=== PATIENT | female | born 1965 | race Caucasian/White ===

== ENCOUNTER → 2022-01-10 13:22 | Outpatient (CLI) | payer BC, SELFPAY ==
--- NOTE | ~2022-01-10 | MM_ITS ---
EXAMINATION: MM screening gale BI w w[place]ka HISTORY: Screening mammogram TECHNIQUE: Craniocaudal and mediolateral oblique 3-D tomosynthesis images were obtained and synthetic 2-D images were generated. CAD analysis was submitted and interpreted. COMPARISON: 10/15/2017, 04/26/2013, 03/17/2012 bilateral screening mammogram examinations BREAST PARENCHYMAL COMPOSITION: There are scattered areas of fibroglandular density. FINDINGS: There is no evidence of suspicious mass, calcification, or architectural distortion to sugg est malignancy in either breast. There has been no suspicious interval change. IMPRESSION: 1. No mammographic evidence of malignancy. 2. Recommend routine screening mammography in one year. BI-RADS Category 1: Negative Reviewed, dictated and finalized at location A.
== END ==
PROVIDERS: PCP Family Medicine Sports Medicine; Visit Provider Family Medicine Sports Medicine
DX: Z12.31 Encounter for screening mammogram for malignant neoplasm of breast (principal)
CPT/HCPCS: 77063; 77067

== ENCOUNTER → 2023-03-18 11:40 | Outpatient (CLI) | payer BC, SELFPAY ==
--- NOTE | ~2023-03-18 | MM_ITS ---
EXAMINATION: MM screening gale BI w [place]ka HISTORY: Screening mammogram TECHNIQUE: Craniocaudal and mediolateral oblique 3-D tomosynthesis images were obtained and synthetic 2-D images were generated. CAD analysis was submitted and interpreted. COMPARISON: 01/10/2022, 10/15/2017 lateral screening mammogram examinations BREAST PARENCHYMAL COMPOSITION: There are scattered areas of fibroglandular density. FINDINGS: There is no evidence of suspicious mass, calcification, or architectural distortion to sugg est malignancy in either breast. There has been no suspicious interval change. IMPRESSION: 1. No mammographic evidence of malignancy. 2. Recommend routine screening mammography in one year. BI-RADS Category 1: Negative Reviewed, dictated and finalized at location A. RITY SYSTEM ENGINEER
== END ==
PROVIDERS: PCP Family Medicine Sports Medicine; Visit Provider Family Medicine Sports Medicine
DX: Z12.31 Encounter for screening mammogram for malignant neoplasm of breast (principal)
CPT/HCPCS: 77063; 77067

== ENCOUNTER 2025-02-16 11:53 | Outpatient (CLI) | payer BC, SELFPAY ==
--- NOTE | ~2025-02-16 | MM_ITS ---
EXAMINATION: MM screening gale BI w [place] HISTORY: Screening TECHNIQUE: Craniocaudal and mediolateral oblique 3-D tomosynthesis images were obtained and synthetic 2-D images were generated. CAD analysis was submitted and interpreted. COMPARISON: Comparison to multiple prior studies sequentially, with oldest reviewed study dated 10/15/2017. BREAST PARENCHYMAL COMPOSITION: Not Dense: The breasts are almost entirely fatty. FINDINGS: There is no evidence of suspicious mass, calcification, or architectural distortion to suggest malignancy in either breast. There has been no suspicious interval change. IMPRESSION: 1. No mammographic evidence of malignancy. 2. Recommend routine screening mammography in one year. BI-RADS Category 1: Negative Reviewed, dictated and finalized at location O.
--- OUTSIDE RECORDS SUMMARY | 2025-02-16 15:11 | XMS_ITS | Clinical Summary ---
Author Organization [facility] Address [address] [place] [address] Care Team Providers Care Rug Dry Room Attendant Name Role Phone Keith Astorga MD Primary Care Provider [phone] Source Comments [facility],non-owned Affiliates and Associated Physician Practices is amultiple site organization consisting of ambulatory clinics and hospital sitesin [place], [place], [place] and [place]. This disclosure is being madepursuant to the Care Everywhere program and may not contain all information available regarding this patient. Last updated 18.[facility] Allergies Active Allergy Reactions Criticality Noted Date Comments Tramadol 04/11/2014 dehydrates Medications * Be aware that medications may not be up to date on this document. Alwaysverify current medications with the patient. linaclotide (LINZESS) 290 MCG capsule Take 290 mcg by mouth daily before breakfast. Take on an empty stomach at least 30 minutes prior to first meal of the day. Active clidinium-chlor diazepoxide (LIBRAX) 5-2.5 MG capsule Take 1 Cap by mouth 3 times daily before meals. Active Calcium Carbonate-Vitam in D (CALCIUM + D PO) Take by mouth. Active multivitamin daily (THERAGRAN) tablet Take 1 Tab by mouth daily with food. Active IBUPROFEN PO Take by mouth as needed. Active hyoscyamine 0.125 MG tablet Take 1 Tab by mouth 4 times daily as needed (ibs). 60 Tab 3 06/01/2014 Active Family History Medical History Relation Name Comments Arthritis - Rheumatoid Brother CAD (Coronary Artery Disease) Father hardening Arthritis - Rheumatoid Mother Diabetes Mother Hypertension Mother Arthritis - Rheumatoid Sister Diabetes Sister Hypertension Sister Relation Name Status Comments Brother Father Mother Sister Social History Tobacco Use Types Packs/Day Years Used Date Smoking Tobacco: Never Smokeless Tobacco: Never Alcohol Use Standard Drinks/Week Comments No 0 (1 standard drink = 0.6 oz pur e alcohol) occas Comments Unknown Sex and Gender Information Value Date Recorded Sex Assigned at Not on file Legal Sex Female 10:08 AM POLICY DIRECTOR Gender Identity Not on file Sexual Orientation Not on file Last Filed Vital Signs Vital Sign Reading Time Taken Comments Blood Pressure 118/70 07/22/2016 11:23 AM CDT Pulse 67 07/22/2016 11:23 AM CDT Temperature 36.6 C (97.9 F) 07/22/2016 11:23 AM CDT Respiratory Rate 16 07/22/2016 11:23 AM CDT Oxygen Saturation 99% 07/22/2016 11:23 AM CDT Inhaled Oxygen Concentration - - Weight 86.2 kg (190 lb) 07/22/2016 11:23 AM CDT Height 160 cm (5' 3) 07/22/2016 11:23 AM CDT Body Mass Index 33.66 07/22/2016 11:23 AM CDT Plan of Treatment Health Maintenance Due Date Last Done Comments COLOGUARD (AGES 45-75) - COL ON CA SCREENING 1965 CT COLONOGRAPHY - COLON CA SCREENING 1965 FIT - COLON CA SCREENING 1965 FLEX SIG - COLON CA SCREENING 1965 LIPID TESTING 1965 MAMMOGRAM 1965 HIV SCREENING 1980 HEPATITIS C SCREENING 03/03/1983 DTAP/TDAP/TD VACCINES (1 - Tdap) 1984 HEPATITIS B VACCINE (1 of 3 - 19+ 3-dose series) 1984 PNEUMOCOCCAL VACCINE 50+ (1 of 1 - PCV) 2015 ZOSTER VACCINE (1 of 2) 2015 DEPRESSION SCREENING 04/28/2024 COLON MONITORING 06/01/2024 06/01/2014, 06/01/2014 COLONOSCOPY - COLON CA SCREENING 06/01/2024 06/01/2014, 06/01/2014 Colorectal Cancer Screening 06/01/2024 COVID-19 VACCINE (1 - 2023-2 5 season) 2024 INFLUENZA VACCINE (#1) 2024 HIB VACCINE Aged Out No longer eligi ble based on patient's age to complete this topic HPV VACCINE Aged Out No longer eligi ble based on patient's age to complete this topic MENINGOCOCCAL (Group B) VACCINE SHARED DECISION-MAKING Aged Out No longer eligible based on patient's age to complete this topic MENINGOCOCCAL GROUPS A/C/Y/W VACCINE Aged Out No longer eligible b ased on patient's age to complete this topic Procedures Procedure Name Priority Date/Time Associated Diagnosis Comments ENDOSCOPY, COLON, SCREENING Routine 06/01/2014 11:00 AM POLICY DIRECTOR from Last 3 Months or Most Recently Relevant to Health Maintenance Results * ENDOSCOPY, COLON, SCREENING (06/01/2014 11:00 AM POLICY DIRECTOR) Report Endoscopy POC _ Patient Name: Natalia Brandt Procedure Date: 06/01/2014 11:00 AM Date of : 1965 Admit Type: Outpatient Age: 49 Gender: Female Attending MD: Hiren Trinidad MD _ Procedure: Upper GI endoscopy Indications: Epigastric abdominal pain Providers: Hiren Trinidad MD (Doctor), Bhumika Hernandez, Firebrick Layer Helper Referring MD: Keith Astorga MD (Referring MD) Medicines: Monitored Anesthesia Care Complications: No immediate complications. _ Procedure: Pre-Anesthesia Assessment: - ASA Grade Assessment: II - A patient with mild systemic disease. - Airway Examination: Mallampati Class I (tonsillar pillars visualized). After obtaining informed consent, the endoscope was passed under direct vision. Throughout the procedure, the patient's blood pressure, pulse, and oxygen saturations were monitored continuously. The Endoscope was introduced through the mouth, and advanced to the second part of duodenum. The upper GI endoscopy was accomplished without difficulty. The patient tolerated the procedure well. Impression: - Normal esophagus. - Gastritis. Biopsied. - Normal duodenal bulb and 2nd part of the duodenum. Findings: The examined esophagus was normal. Localized mild inflammation characterized by erythema was found in the gastric antrum. Biopsies were taken with a cold forceps for Helicobacter pylori testing using CLOtest. Estimated blood loss: none. The duodenal bulb and 2nd part of the duodenum were normal. _ Recommendation: - Follow an antireflux regimen. - Use Prilosec (omeprazole) 20 mg PO daily. Procedure Code(s): --- Professional --- 72546, Esophagogastroduo denoscopy, flexible, transoral; with biopsy, single or multiple --- Technical --- 63672, Esophagogastroduo denoscopy, flexible, transoral; with biopsy, single or multiple Diagnosis Code(s): --- Professional --- 535.50, Unspecified gastritis and gastroduodenitis, without mention of hemorrhage 789.06, Abdominal pain, epigastric --- Technical --- 535.50, Unspecified gastritis and gastroduodenitis, without mention of hemorrhage 789.06, Abdominal pain, epigastric CPT copyright 2013 [employer]. All rights reserved. The codes documented in this report are preliminary and upon sports complex attendant review may be revised to meet current compliance requirements. Hiren Trinidad MD 06/01/2014 11:11 AM This report has been signed electronically. Number of Addenda: 0 Note Initiated On: 06/01/2014 11:00 AM [facility] ENDOSCOPY 06/01/2014 11:0 0 AM POLICY DIRECTOR us Hiren Trinidad MD GI PROCEDURE ORDERABLES Edited R esult - Final HC ENDOSCOPY from Last 3 Months or Most Recently Relevant to Health Maintenance Insurance ANTH Care Teams Rug Dry Room Attendant Relationship Specialty Start Date End Date Keith Astorga MD PCP - General Family Medicine 03/03/14
--- OUTSIDE RECORDS SUMMARY | 2025-02-16 15:11 | XMS_ITS | Patient Health Record ---
Author Organization [facility] Address [address] [place] [address] Care Team Providers Care Director Of Retail Merchandising Name Role Phone Nithin Amaro MD Primary Care Provider Unavailab Kody Mariano Unavailable [phone] Allergies Allergen (clinical drug ingredient) Drug/Non Drug Allergy documented on EMR Reaction Allergy Type Onset Date Status tramadol Ultram Unknown Drug Allergy Active Reason For Referral No Information Medications Medication SIG (Take, Route, Frequency, Duration) Notes Start Date End Date Status Meloxicam Active Trulance 3 mg One PO Daily; Durati on: 90 days 10/12/2019 Active OTC/Vitamins Vitamin C, Calci um, MVI Active Social History Tobacco Use: Social History Observation Description Date Details (start date - stop date) Never Smoker NA - NA Tobacco Use/Smoking Question Answer Notes Are you a nonsmoker Problems Problem Type SNOMED Code ICD Code Onset Dates Problem Status W/U Status Risk Notes Problem C-reactive protein abnormal (099847488) Elevated C-reactive protein (CRP) (R79.82) Active confirmed Problem Elevated liver enzymes level (536163883) Elevated liver enzymes (R74.8) Active confirmed Problem Constipation (25363510) Constipation (K59.00) Active confirmed She tends to be constipated. She was previously on Linzess, but ran out of the medication one month ago. She has been using fiber, which worked initially, but over the last few days has been feeling constipated again. She is only having a bowel movement every other day. She occasionally will see a small amount of blood on the toilet paper when wiping. Problem Irritable bowel syndrome characterized by constipation (016922730) Irritable bowel syndrome with constipation (K58.1) Active confirmed Problem Left lower quadrant pain (839681342) LLQ pain (R10.32) Active confirmed Friday night, she was experiencing excruciating pain around her left flank and could not get comfortable. The following day she went to a multi-home care attendant and had an x-ray, MRI, and CT scan. Her CT revealed thickened mucosa in the sigmoid, which could relate to prominent haustral markings or possible annular constricting lesion measuring 10 mm in length. She did have a low-grade fever of 99.8 and was feeling flu like. Will schedule colonoscopy to further evaluate. Problem Abnormal CT scan, sigmoid colon (R93.3) Active confirmed Problem Left flank pain (246838040) Left flank pain (R10.9) Active confirmed Plan Of Treatment Pending Test Test Name Order Date Colonoscopy 03/05/2019 Hepatic Function 04/09/2019 Insurance Providers Payer Name Payer Address Payer Phone Subscriber Number Group Number Insured Name Patient Relationship to Insured Coverage Start Date Coverage End Date [employer] Access PPO E2 [address] [place] [address] [id number] Natalia Brandt Self - patient is the insured Medical (General) History Medical History History ICD Code IBS GERD Diverticulosis Endometriosis Carpal Tunnel Syndrome Ulnar Neuropathy Surgical History Surgery Date(Month/Year) Colonoscopy 02/2019 Cholecystectomy Right Shoulder Surgery C- Section Hysterectomy Sinus Surgery Cyst Removal from Feet Bilateral Carpal Tunnel Dequervain Surgery left wrist Abdominal laparoscopic surgery with tuba l ligation
== END 2025-02-16 11:54 | disposition home or self-care (01) ==
LOC: CHSIMG 11:57
PROVIDERS: PCP Nurse Practitioner; Visit Provider Nurse Practitioner
DX: Z12.31 Encounter for screening mammogram for malignant neoplasm of breast (principal)
CPT/HCPCS: 77063; 77067